=== PATIENT | male | born 1945 | race Caucasian/White ===

== ENCOUNTER 2016-08-14 13:22 | Emergency (ER) | payer MEDICARE ==
[~2016-08-14] VITALS: Ht 185.4 cm; Wt 84.5 kg
[~2016-08-14 13:22] MED LIST: DEXAMETHASONE
[2016-08-14 13:23] VITALS: BP 160/94
[2016-08-14] MEDS ORDERED: BACITRACIN ZINC OINT 500U/GM, 0.9 GM ONE (14:01)
[2016-08-14] MEDS ORDERED: LIDOCAINE GEL 2%, 5ML ONE (14:45)
[2016-08-14] MEDS ORDERED: DIPH,PERTUSS(ACELL),TET VAC/PF 0.5 ML IM-VACC ONE ×2 (14:51→15:30)
[2016-08-14] MEDS ORDERED: SODIUM CHLORIDE 0.9% 1,000ML IVBOLUS ONE (15:00)
[2016-08-14] MEDS ORDERED: LIDOCAINE GEL 2%, 5ML TP ONE (15:00)
== END 2016-08-14 16:01 | disposition home or self-care (01) ==
LOC: ED 15:51
DX: S40.211A Abrasion of right shoulder, initial encounter (principal); S70.211A Abrasion, right hip, initial encounter; S80.212A Abrasion, left knee, initial encounter; S80.211A Abrasion, right knee, initial encounter; Z88.1 Allergy status to other antibiotic agents; W19.XXXA Unspecified fall, initial encounter; Y93.89 Activity, other specified; Y92.410 Unspecified street and highway as the place of occurrence of the external cause; Y99.9 Unspecified external cause status
CPT/HCPCS: 90471; 90715

== ENCOUNTER 2017-03-01 07:57 | Emergency (ER) | payer MEDICARE ==
[~2017-03-01] VITALS: Ht 185.4 cm; Wt 88.6 kg
[2017-03-01] MEDS ORDERED: KETOROLAC 30 MG/1 ML ONE (08:52)
[2017-03-01] MEDS ORDERED: KETOROLAC 30 MG/1 ML IM ONE (09:00)
[2017-03-01 10:17] VITALS: BP 167/92
== END 2017-03-01 10:21 | disposition home or self-care (01) ==
LOC: ED 09:50
DX: R07.89 Other chest pain (principal)
CPT/HCPCS: 71101; 93005; 96372; 99284; J1885

== ENCOUNTER → 2018-07-10 | Outpatient (CLI) | payer MEDICARE | END | disposition home or self-care (01) | LOC: CFH 13:43 | PROVIDERS: ATTEND Family Medicine | DX: M19.031 Primary osteoarthritis, right wrist (principal); Z88.1 Allergy status to other antibiotic agents; Z88.8 Allergy status to other drugs, medicaments and biological substances ==

== ENCOUNTER 2018-10-31 12:43 | Emergency (ER) | payer MEDICARE ==
[~2018-10-31] VITALS: Ht 182.9 cm; Wt 87.0 kg
[2018-10-31 16:04] VITALS: BP 141/76
== END 2018-10-31 16:30 | disposition home or self-care (01) ==
LOC: ED 15:46
DX: M19.032 Primary osteoarthritis, left wrist (principal); M19.031 Primary osteoarthritis, right wrist; M19.012 Primary osteoarthritis, left shoulder; I10 Essential (primary) hypertension
CPT/HCPCS: 36415; 80048; 82040; 85025; 93005; 99284